=== PATIENT | female | born 1980 | race Caucasian/White ===

== ENCOUNTER 2023-01-22 15:04 | Inpatient (IN) | payer OTHER, MEDICAID, SELFPAY ==
--- NOTE | 2023-01-22 16:36 | P.HPOB_ITS ---
OB HPI Date/Time Date of admission: 01/22/23 Date Patient Seen: 01/22/23 Time Patient Seen: 16:00 History of Present Condition Chief complaint: Labor : 10 Para: 5 Estimated Date of Delivery: 01/15/23 Estimated Gestational Age (weeks): 41 Narrative: Poly Roberts is a 42 year old female at 41 weeks 0 days by sure conception date, confirmed by 9 week US. She received regular, uncomplicated care with [facility] Don[facility] and transferred to [facility] care in her 40th week of desiring hospital and induction of labor. She presents today concerned with decreased movement, feeling like she may be leaking amniotic fluid, and overall having a bad feeling about staying . No vaginal bleeding. Emotional and tearful when discussing plan of care, very anxious about continuing this , continues to state I just want her (baby) to be okay. She is accompanied by her mother Merlyn and daughter Anahy. She desires a low intervention induction and taking things slowly. Prefers no saline lock at this time; accepting of saline lock if/when medically necessary. Consents to narvaez placement. Consents to admission blood work and wants confirmatory blood type draw to be done at time of saline lock placement. Consents to GBS prophylaxis once saline lock is in place. Would love to avoid Pitocin if possible but open if needed to get baby here. Plans an unmedicated . Indications Indication for induction OB: other (AMA, hx of 4 miscarriages and EDDIE 20.4cm) and post dates History of Present care: good care, initiated at week # (9), number of visits (15) and pounds weight gain (declined weight monitoring during ) Dating criteria: other (sure conception date, confirmed by early US ) Ultrasounds: normal 1st trimester US and normal mid trimester US Abnormal ultrasound findings: perigestational bleed, fundal fibroid - 2.6cm Obstetrical complications: none Medical complications: none Preadmission Labs Blood type: B (+) positive -: Antibody screen: negative, Cystic fibrosis screen: unknown, GBS status: positive, HBsAG: negative, HIV: negative and RPR/VDLR: negative -: Chlamydia screen: not detected and Gonorrhea screen: not detected -: Rubella: immune and Varicella: unknown HCT: 33.6 (11/27/22) HCAB: negative Cell-free DNA: Declined all genetic screening 1 hr GTT: 118 Prior (ies) History: Term 2006, 2009, 2012 2005, 2010 both at 36 wks SAB x 4 with second trimester miscarriages in 2020 Evaluation Evaluation Baseline heart rate: 125 Variability: Moderate (11-25) monitor accelerations: Present Monitor Decelerations: Absent Contraction Frequency (minutes): 10 (irregular) Uterine Contraction Intensity: Moderate Category of Tracing: Reactive Dilation (cm): 2 Effacement (%): 50 Dilation: 1-2 cm Effacement: 40-50% station: -3 Position of cervix: posterior Consistency: medium Real score: 3 Non-invasive Membranes Rupture Test: negative Comments: Real score 9 when calculated with parity included PFSH Surgical History (Updated 01/22/23 @ 16:47 by Geeta Mayes CNM, TOMI) History of tonsillectomy [place] teeth extracted Family History Grandfather Heart disease Sister Cancer Grandmother Cancer Father Cancer Mother Osteoporosis Social History (Updated 01/22/23 @ 16:50 by Geeta Mayes CNM, TOMI) marital status: household members: children lives independently: Yes occupational status: employed Smoking Status: Never smoker alcohol intake: never substance use type: does not use frequency: 3-4 times per week Meds Home Medications and Allergies Home Medications Medication Instructions Recorded Confirmed Type Daily Probiotic 1 tab PO DAILY 01/22/23 01/22/23 History PNV [id number] 1 tab PO DAILY 01/22/23 01/22/23 History calcium-vitamin D3-magnesium 1 tab PO DAILY 01/22/23 01/22/23 History Allergies Allergy/AdvReac Type Severity Reaction Status Date / Time codeine AdvReac Verified 01/22/23 16:51 Review of Systems Review of Systems ROS: Yes All systems reviewed with the patient and are negative except as otherwise documented OB Exam Vital signs Blood Pressure: 124/79 Pulse Rate: 81 HENMT Head: normal to inspection, normocephalic and atraumatic Eyes General: appearance normal, both eyes and all related structures Resp Effort & Inspection: normal respiratory effort Auscultation: clear to auscultation bilaterally Cardio Rate: regular rate Rhythm: regular rhythm Extremities Lower extremity: Yes normal to inspection GI Inspection: normal to inspection Presentation: vertex Estimated Weight (lbs): 9 Objective Labs 01/22/23 16:52 Assessment and Plan Assessment and Plan Assessment and Plan narrative: A: 42yo at 41 weeks 0 days by sure conception date, confirmed by 9 week US Grand multipara AMA Post dates GBS positive Rh positive Maternal anxiety Intact membranes, confirmed by amnisure Cervical ripening indicated Reactive NST P: Admit to center Declining saline lock until medically indicated for reason besides GBS prophylaxis Admission labs done without saline lock, will do confirmation blood type draw when saline lock is placed Narvaez balloon placed with 60ml normal saline Pitocin or misoprostol as needed Counseled on pain medication options Discussed recommendation for GBS prophylaxis at length, including risks to if untreated. Open to prophylaxis once saline lock is in place but declining at this time. Will revisit when more active in labor or before rupturing.
[2023-01-22 17:01] LABS: Add Manual Diff / Slide Review NO; Basophils Absolute Auto 0 /uL (0-100); Basophils Percent Auto 0.4 % (0-2); Eosinophils Absolute Auto 200 /uL (0-450); Eosinophils Percent Auto 1.8 % (2-4); Hematocrit 33.3 % (36-46); Hemoglobin 11.3 g/dL (12.0-16.0); Lymphocytes Absolute Auto 1900 /uL (1100-4500); Lymphocytes Percent Auto 21.5 % (25-40); Mean Corpuscular HGB Conc 33.9 % (30-36); Mean Corpuscular Hemoglobin 28.9 PG (26-34); Mean Corpuscular Volume 85.3 fL (80-100); Monocytes Absolute Auto 600 /uL (0-900); Monocytes Percent Auto 6.9 % (3-14); Neutrophils Absolute Auto 6000 /uL (1500-7000); Neutrophils Percent Auto 69.4 % (50-75); Platelet Count 192 X10^3/uL (150-400); Red Cell Distribution Width 15.4 % (11.6-14.8); White Blood Cell Count 8.7 X10^3/uL (4.5-11.0)
[2023-01-22 17:06] VITALS: BP 124/79; PULSE 81
--- NOTE | 2023-01-22 19:08 | PM.OBPNLAB ---
Date/Time Date Patient Seen: 01/22/23 Time Patient Seen: 19:00 Pain Control Comments: Poly is sitting in bed talking with her family. She got up to the bathroom and the narvaez balloon came out with one crampy contraction. Feeling more frequent mild contractions. She would like to keep the induction process going. VS: BP: 124/79mmHg, HR: 81 bpm Pelvic Exam Dilation (cm): 3.5 Effacement (%): 50 station: -3 Amniotic membrane status: Intact Contractions Contractions on admission: irregular Monitor mode: External Contraction frequency (min): 5 Contraction duration (min): 1 Contraction pattern: Irregular Contraction intensity: Mild Status status: Category l Heart Rate Baseline: 145 Monitor Accelerations: Present Monitor Decelerations: Absent Monitor Variability: Moderate Assessment and Plan Assessment: induction ongoing Plan: continuous present management Comments: A: 42yo at 41 weeks 0 days IOL, early labor GBS postive Rh positive AMA Membranes intact FHR Cat 1 P: Place saline lock IV, drawing second admission blood type sample at that time Pitocin per protocol GBS prophylaxis with ROM or active labor Alternate movement and rest Anticipate NSVB
[2023-01-22 19:51] VITALS: BP 124/79
[2023-01-22] MEDS: LACTATED RINGERS 1,000 ML 100 ML IV (20:12)
[2023-01-22] MEDS: OXYTOCIN PREMIX 30 UNIT/500 ML PLAST..BAG IV (20:26)
--- NOTE | 2023-01-22 23:45 | PM.OBPNLAB ---
Date/Time Date Patient Seen: 01/22/23 Time Patient Seen: 23:45 Pain Control Pain control: tolerating well Comments: Poly is resting in bed on her side after taking a shower. She feels frequent mild contractions but doesn't feel like much change has happened. Does not want to start antibiotics for GBS prophylaxis yet. VS: BP: 101/66mmHg HR: 97bpm T: 35.9C temporal Pelvic Exam Amniotic membrane status: Intact Comments: CE deferred Contractions Monitor mode: External Pitocin rate (mU/min): 4 Contraction frequency (min): 2 (2-3) Contraction duration (min): 1 Contraction pattern: Regular Contraction intensity: Mild Status status: Category l Heart Rate Baseline: 125 Monitor Accelerations: Present Monitor Decelerations: Absent Monitor Variability: Moderate Assessment and Plan Assessment: induction ongoing Plan: continuous present management Comments: A: 42yo at 40 weeks 0 days IOL on-going AMA GBS positive Rh positive Membranes intact FHR Cat 1 P: Increase pitocin as protocol allows Continue to alternate rest and movement Discussed recommendation for starting GBS prophylaxis now, Poly declines at this time. Anticipate NSVB
[2023-01-23] MEDS: AMPICILLIN 2,000 MG in SODIUM CHLORIDE 0.9% 100 ML 200 MG IV (03:05)
--- NOTE | 2023-01-23 03:23 | PM.OBPNLAB ---
Date/Time Date Patient Seen: 01/23/23 Time Patient Seen: 03:23 Pain Control Comments: Sabrina is sitting in a chair, standing and swaying with contractions, with her mom at her side for support. She feels like contractions are more intense and is having bloody show. VS: BP: 111/74 HR: 107bpm T: 36.6C Pelvic Exam Amniotic membrane status: Intact Comments: CE declined Contractions Contractions on admission: regular Monitor mode: External Pitocin rate (mU/min): 6 Contraction frequency (min): 2 (2-3) Contraction duration (min): 1 Contraction pattern: Regular Contraction intensity: Moderate Status status: Category l Heart Rate Baseline: 125 Monitor Accelerations: Present Monitor Decelerations: Absent Monitor Variability: Moderate Assessment and Plan Assessment: induction ongoing Plan: continuous present management Comments: A: 42yo at 41 weeks 1 day IOL on-going AMA GBS positive Rh positive Membranes intact Active labor FHR Cat 1 P: Continue Pitocin per protocol Labor support as needed Cervical exam offered and declined Support movement Anticipate NSVB
[2023-01-23] MEDS: AMPICILLIN 1,000 MG in SODIUM CHLORIDE 0.9% 100 ML 200 MG IV (06:59)
--- NOTE | 2023-01-23 07:55 | PM.OBPNLAB ---
Date/Time Date Patient Seen: 01/23/23 Time Patient Seen: 07:30 Pain Control Pain control: tolerating well Comments: Poly is standing at the side of the bed, squatting and moaning with contractions. She is having bloody show, which brought up memories of recent miscarriages. She is feeling intermittent rectal pressure. Cervical exam offered and declined. VS: BP: 112/70 HR: 75bpm T: 36.2C Pelvic Exam Amniotic membrane status: Intact Comments: CE declined. Contractions Monitor mode: External Pitocin rate (mU/min): 6 Contraction frequency (min): 2 (2-3) Contraction duration (min): 1 Contraction pattern: Regular Contraction intensity: Strong/Firm Status status: Category l Heart Rate Baseline: 130 Monitor Accelerations: Present Monitor Decelerations: Absent Monitor Variability: Moderate Assessment and Plan Assessment: active labor and induction ongoing Plan: continuous present management Comments: A: 42yo at 41 weeks 1 day IOL Active labor AMA GBS postive with adequate antibiotic coverage Rh postive FHR Cat 1 P: Continue pitocin per protocol Continue Ampicillin 1g q4hrs for GBS prophylaxis Continuous labor support Anticipate NSVB
[2023-01-23] MEDS: LIDOCAINE 1% 20 ML INJ (12:05)
[2023-01-23] MEDS: KETOROLAC 30 MG/ML VIAL IV (12:06)
[2023-01-23] MEDS: METHYLERGONOVINE 0.2 MG/ML VIAL IM (12:52)
[2023-01-23] MEDS: ACETAMINOPHEN 325 MG TABLET 650 MG PO (13:05)
--- NOTE | 2023-01-23 13:16 | PM.OBPNLAB ---
Date/Time Date Patient Seen: 01/23/23 Time Patient Seen: 10:30 Pain Control Pain control: other (nitrous oxide) Comments: Poly is working hard with contractions - moaning, moving, breathing with coaching. Cervical exam at 0930am: 7/80/-2 with a bulging bag. Discussed plan of continuing at this dose of pitocin (6U), rupturing her bag of ayala or increasing pitocin to bring stronger contractions. She started using nitrous oxide with good effect and at 1020 requests AROM. RN, CNM, SNM and family members continuously at bedside providing labor support to Poly. VS: BP: 112/70mmHg HR: 75bpm T: 36.2C Pelvic Exam Dilation (cm): 9 Effacement (%): 100 station: -1 Amniotic membrane status: Ruptured (AROM, thick meconium) Contractions Monitor mode: External Pitocin rate (mU/min): 6 Contraction frequency (min): 2 (2-3) Contraction duration (min): 1 Contraction pattern: Regular Contraction intensity: Strong/Firm Status status: Category l Heart Rate Baseline: 125 Monitor Accelerations: Present Monitor Decelerations: Absent Monitor Variability: Moderate Assessment and Plan Assessment: active labor and induction ongoing Plan: continuous present management Comments: A: 42yo at 41 weeks 1 day IOL Active labor AROM, thick meconium GBS positive with adequate antiobiotic coverage Rh positive FHR Cat P: Decrease pitocin to 4U Continuous labor support Anticipate NSVB
--- NOTE | 2023-01-23 13:30 | PM.OBPRVD ---
Events: Labor Induction, Meconium Stained Fluid and Other (AMA > 40 ) Labor & Delivery Delivery date: 01/23/23 Cervical ripening method: per Narvaez bulb protocol Induction method: per pitocin protocol Delivery augmentation: rupture of membranes Delivery monitor: external FHT Route of delivery: Episiotomy description: None L&D Laceration Description: Perineal - 2nd Degree Delivery repair: vicryl Quantitative Blood Loss: 534 Anesthesia Type: Other (Nitrous oxide) Narrative: Labor was induced with a narvaez balloon for cervical ripening, and then pitocin, max dose 6mu. Poly requested AROM of bulging bag at 10:24, thick meconium, bloody show and Cat 1 FHR noted. She felt the spontaneous urge to push shortly thereafter. Poly pushed effectively with perineal bulging, hemorrhoids, and copious stool noted during the 1hr 2nd stage, FHR was Cat 1 throughout. With Poly in hands and knees position, head delivered at 11:23 and SNM restitution to HUSSEIN. NSVB of baby at 11:24, shoulders delivered with appropriate traction from SNM and CNM. Baby was dried and stimulated and passed through Poly's legs and brought to maternal abdomen. Respiratory therapist was on standby at delivery for presence of meconium stained fluid. Apgars 7/8. Poly and remained skin to skin while placenta was delivered with cord still intact. With gentle cord traction and maternal efforts, placenta delivered spontaneously, Schultze, and appeared to be intact. Pitocin administered IV per protocol for AMSTL. 3 vessel cord clamped and cut by FOMisty Almeida at 30 minutes of life after cord pulsing had stopped and Poly was ready. Cord blood collected per hospital protocol. Perineum inspected, 2nd degree perineal laceration repaired with 3-0 vicryl in the usual fashion. During repair continued trickling noted, methergine 2mg IM administered. Blood loss measured at 534 mL. Mom and baby left stable and . Poly and her family - BILLY Almeida, her mother Merlyn, and her daughter Anahy - are thrilled to meet their baby. Geeta Mayes SALES REPRESENTATIVE [employer], CNM, IBCLC [place] Baby 1: Infant gender: Female Presentation: vertex Position: Left Occiput Anterior Placenta delivery description: Spontaneous (Schultze) Cord Vessel Description: 3 Vessels score (1 min): 7 score (5 min): 8 weight: 4.95 kg Plan for aftercare: Routine care
[2023-01-23] MEDS: IBUPROFEN 600 MG TABLET PO (18:05)
[2023-01-24] MEDS: ACETAMINOPHEN 325 MG TABLET 650 MG PO (00:12)
[2023-01-24] MEDS: IBUPROFEN 600 MG TABLET PO ×2 (00:12→09:58)
--- NOTE | 2023-01-24 07:28 | P.DS_ITS ---
Discharge Providers Provider Date of admission: 01/22/23 15:04 Discharge Date: 01/24/23 Consults: 01/22/23 16:26 Consult to Anesthesiology Urgent Comment: Consulting Provider: Anesthesiologist Reason for consultation: Epidural 01/24/23 11:40 Consult to Armhole Baster Jumpbasting Routine Comment: Discharge provider: Shamika Robertson CNM Summary Hospital Course Date Patient Seen: 01/24/23 Time Patient Seen: 07:28 Diagnoses: O70.1 Hospital Course: PPD1: Stable s/p NSVB with a 2nd degree perineal laceration. Voiding, ambulating and independently. Tolerating general diet. Pain is well controlled with PO medication. Vaginal bleeding is light, without clots. Partner is present ad supportive and they both feel ready to go home with their baby this morning. Peripartum Data Infant Delivery Method: Natural Vaginal Laceration Description: Perineal - 2nd Degree Episiotomy description: None complications: none Mitchell 1: Gender: Female Disposition of : home Discharge Diagnosis (1) Del w/ 2 deg lac-unsp: Status: Acute Problem Details: routine course Status at Discharge Cognitive/behavioral status at discharge: oriented and calm Functional status at discharge: independent ambulation Overall status at discharge: patient is progressing back to baseline Time Spent with Patient Time attestation: Total time spent providing and/or coordinating discharge services: Objective Labs 01/22/23 16:52 Exam Vital Signs (past 8 hours): BP 88/56, HR 74bpm, RR 16/min, T 98.0F Axillary Other: Fundus firm @ u-1, lochia light, no clots, perineum well approximated Discharge Plan Discharge Plan Patient Disposition: Home Discharge orders & Medications Prescriptions: New ibuprofen 600 mg Tablet 600 mg PO Q6HR PRN (Reason: Pain, Mild (1-3)) 14 Days Qty: 60 0RF Continued Daily Probiotic 1 tab PO DAILY PNV [id number] 1 tab PO DAILY calcium-vitamin D3-magnesium 1 tab PO DAILY Follow up/Referrals: Shamika Robertson CNM [[facility]] - (Patient to call to schedule 2wk and 6wk follow-up appointments.) Diet/Activity/Treatments Diet: Diet as Tolerated Activity: minimal activity with no heavy lifting x2 weeks Skin/Wound/Dressing Care Report to your healthcare provider any signs of infection, such as:: chills, fever, increased pain, unusual drainage and unusual redness Visit Report/Discharge Packet Instructions: DI for Depression Stand Alone Forms: Patient Portal/API, Stroke Signs & Symptoms
[2023-01-24 09:16] VITALS: BP 107/66; PULSE 74; RESP 18; TEMP 36.6
== END 2023-01-24 10:45 | disposition home or self-care (01) | DRG 560 ==
PROVIDERS: Admitting Provider Advanced Practice Midwife; Referring Provider Advanced Practice Midwife; Visit Provider Advanced Practice Midwife
DX: O48.0 Post-term pregnancy (principal); Z3A.41 41 weeks gestation of pregnancy; Z37.0 Single live birth; O99.824 Streptococcus B carrier state complicating childbirth; O70.1 Second degree perineal laceration during delivery
CPT/HCPCS: 36415; 59050; 85025; 86850; 86900; 86901; G0379; J0290; J1885; J2210; J2590